=== PATIENT | male | born 1975 | race Two or more races ===

== ENCOUNTER 2024-05-26 03:36 | Inpatient (IN) | payer MEDICAID ==
[~2024-05-26] VITALS: Ht 175.3 cm; Wt 95.5 kg
[2024-05-26 06:12] LABS: COVID AG,FIA SOURCE NASAL SWAB
[2024-05-26 06:24] LABS: BASOPHILS % (AUTO) 0.4 % (0.0-2.0); EOSINOPHILS % (AUTO) 1.4 % (1.0-6.0); HEMATOCRIT 47.9 % (41-53); HEMOGLOBIN 16.3 g/dL (13.5-17.5); LYMPHOCYTES # (AUTO) 0.9 K/uL (1.0-4.8); LYMPHOCYTES % (AUTO) 17.9 % (22.0-44.0); MEAN CORPUSCULAR HEMOGLOBIN 29.2 pg (26.0-34.0); MEAN CORPUSCULAR VOLUME 86 fL (80-100); MONOCYTES # (AUTO) 0.7 K/uL (0.1-1.0); MONOCYTES % (AUTO) 13.6 % (2.0-9.0); NEUTROPHILS # (AUTO) 3.3 K/uL (1.8-7.7); NEUTROPHILS % (AUTO) 66.7 % (40.0-70.0); PLATELET COUNT (AUTO) 201 K/uL (150-450); RED BLOOD CELL COUNT(AUTO) 5.57 MIL/uL (4.50-5.90); RED CELL DISTRIBUTION WIDTH 13.6 % (11.5-14.5); WHITE BLOOD COUNT (AUTO) 4.9 K/uL (4.5-11.0)
[2024-05-26 06:35] LABS: ALCOHOL, BLOOD (SERUM) < 3 mg/dL (0-10)
[2024-05-26 06:42] LABS: SARS-COV2 (COVID) ANTIGEN,FIA Negative (Negative)
[2024-05-26 06:49] LABS: ANION GAP 6 mmol/L (8-16); CALCIUM, TOTAL 8.8 mg/dL (8.8-10.5); CARBON DIOXIDE 31 mmol/L (22-29); CHLORIDE 99 mmol/L (98-107); CREATININE 1.13 mg/dL (0.60-1.30); GLOMERULAR FILTR. RATE CALC > 60 mL/min (>60); GLUCOSE,RANDOM 131 mg/dL (70-110); POTASSIUM 4.6 mmol/L (3.5-5.1); SODIUM SERUM 136 mmol/L (136-145); UREA NITROGEN, BLOOD 10 mg/dL (7-18)
[2024-05-26 07:34] LABS: PH,URINE DRUG SCREEN 5.5 (5.0-8.0)
[2024-05-26 07:40] LABS: ALCOHOL, URINE DRUG SCREEN NEGATIVE (NEGATIVE); AMPHET/METH SCREEN,URINE POSITIVE (NEGATIVE); BARBITURATE SCREEN, URINE NEGATIVE (NEGATIVE); BENZODIAZEPINES SCREEN,URINE NEGATIVE (NEGATIVE); CANNABINOID SCREEN,URINE NEGATIVE (NEGATIVE); COCAINE SCREEN,URINE NEGATIVE (NEGATIVE); METHADONE SCREEN, URINE NEGATIVE (NEGATIVE); OPIATE SCREEN,URINE NEGATIVE (NEGATIVE); PHENCYCLIDINE SCREEN,URINE NEGATIVE (NEGATIVE)
[2024-05-26] MEDS ORDERED: TUBERCULIN, PURIFIED PROTEIN DERIVATIVE 5 TU/0.1 ML SYRINGE ID ONE (07:45)
[2024-05-26] MEDS ORDERED: MAGNESIUM HYDROXIDE SUSPENSION 30 ML UDCUP PO PRN (07:45)
[2024-05-26] MEDS ORDERED: OLANZapine 5 MG RAPDIS TABLET PO PRN (07:45)
[2024-05-26] MEDS ORDERED: LORazepam 2 MG TABLET PO PRN (07:45)
[2024-05-26] MEDS ORDERED: ACETAMINOPHEN 325 MG TABLET PO PRN (07:45)
[2024-05-26] MEDS ORDERED: HydrOXYzine PAMOATE 50 MG CAPSULE PO PRN (07:45)
[2024-05-26] MEDS ORDERED: GuaiFENesin/D-METHORPHAN [SUGAR-FREE] 200-20MG/10 ML SYRUP UDCUP PO PRN (07:45)
[2024-05-26] MEDS ORDERED: PROMETHAZINE HCL 25 MG TABLET PO PRN (07:45)
[2024-05-26] MEDS ORDERED: MAG HYDROX/ALUMINUM HYD/SIMETH ES 30 ML SUSPENSION UDCUP PO PRN (07:45)
[2024-05-26] MEDS ORDERED: LOPERAMIDE HCL 2 MG CAPSULE PO PRN (07:45)
[2024-05-26] MEDS ORDERED: ZOLPIDEM TARTRATE 10 MG TABLET PO PRN (07:45)
[2024-05-26] MEDS: THIAMINE 100 MG TABLET PO SCH (11:00)
[2024-05-26] MEDS: MULTIVITAMINS WITH MINERALS, THERAPEUTIC TABLET PO SCH (11:00)
[2024-05-26] MEDS: FOLIC ACID 1 MG TABLET PO SCH (11:00)
[2024-05-26 17:47] VITALS: BP 158/96; PULSE 100; RESP 18; TEMP 97; O2SAT 98
[2024-05-26] MEDS ORDERED: INFLUENZA VIRUS VACCINE TVS (6MO+) 2024-25/PF 45 MCG/0.5 ML SYRINGE IM. ONE (18:15)
[2024-05-26] MEDS: MELATONIN 5 MG TABLET PO SCH (20:12)
[2024-05-26 20:13] VITALS: BP 145/78; PULSE 109; RESP 18; TEMP 98.6; O2SAT 96
[2024-05-26] MEDS: OLANZapine 5 MG RAPDIS TABLET PO SCH (20:13)
[2024-05-27 07:37] LABS: HEMOGLOBIN A1C 7.6 % (3.8-5.6)
[2024-05-27 07:49] LABS: CHOL/HDL RATIO 3.5 (4.2-7.3); FREE T4 (FREE THYROXINE) 0.83 ng/dL (0.76-1.46); THYROID STIMULATING HORMONE 0.82 uIU/mL (0.36-3.74)
[2024-05-27 11:01] VITALS: BP 128/74; PULSE 107; RESP 18; TEMP 98.1; O2SAT 100
[2024-05-27] MEDS ORDERED: DEXTROSE 50%-WATER 25 GM/50 ML SYRINGE IVP PRN (12:45)
[2024-05-27] MEDS ORDERED: DENTURE ADHESIVE 68 GM CREAM DT PRN (15:45)
[2024-05-27 16:30] VITALS: BP 139/93; RESP 18; O2SAT 99
[2024-05-27 17:45] LABS: GLUCOMETER DEV NAME(LOC) 3EX.2; GLUCOSE,POINT OF CARE 134 MG/DL (70-110)
[2024-05-27 20:08] LABS: GLUCOMETER DEV NAME(LOC) 3EX.2; GLUCOSE,POINT OF CARE 245 MG/DL (70-110)
[2024-05-27] MEDS: INSULIN LISPRO 100 UNITS/ML SQ PRN (20:46)
[2024-05-27 22:45] VITALS: BP 120/61; PULSE 85; RESP 18; TEMP 98.5; O2SAT 97
[2024-05-28 06:51] LABS: GLUCOMETER DEV NAME(LOC) 3EX.2; GLUCOSE,POINT OF CARE 183 MG/DL (70-110)
[2024-05-28] MEDS: MetFORMIN HCL 500 MG TABLET PO SCH (07:30)
[2024-05-28 13:56] VITALS: BP 127/76; PULSE 91; RESP 18; TEMP 97.2; O2SAT 98
[2024-05-28 17:35] LABS: GLUCOMETER DEV NAME(LOC) 3E.C; GLUCOSE,POINT OF CARE 188 MG/DL (70-110)
[2024-05-28] MEDS: OLANZapine 10 MG RAPDIS TABLET PO SCH (21:00)
[2024-05-28 21:06] VITALS: BP 138/80; PULSE 139; RESP 18; TEMP 97.4; O2SAT 98
[2024-05-29 09:00] VITALS: BP 133/71; PULSE 94; RESP 18; TEMP 97.3; O2SAT 98
[2024-05-29] MEDS ORDERED: MELA5TAB40 PO (13:45)
[2024-05-29] MEDS ORDERED: OLAN10TA26 PO (13:45)
[2024-05-29] MEDS ORDERED: METF-1211 PO (13:59)
== END 2024-05-29 18:07 | disposition home or self-care (01) | DRG 750 ==
LOC: EMS 03:38 → 3EI 15:41
PROVIDERS: ADMIT Psychiatry & Neurology Psychiatry; ATTEND Psychiatry & Neurology Psychiatry
PROC: GZHZZZZ Group Psychotherapy (ICD-10-PCS; principal; 2024-05-27)
PROC: GZ51ZZZ Individual Psychotherapy, Behavioral (ICD-10-PCS; 2024-05-27)
DX: F20.9 Schizophrenia, unspecified (principal); G93.41 Metabolic encephalopathy; R45.851 Suicidal ideations; F32.9 Major depressive disorder, single episode, unspecified; Z59.00 Homelessness unspecified; Z20.822 Contact with and (suspected) exposure to COVID-19; E11.65 Type 2 diabetes mellitus with hyperglycemia; I10 Essential (primary) hypertension; F41.9 Anxiety disorder, unspecified; K21.9 Gastro-esophageal reflux disease without esophagitis; J44.9 Chronic obstructive pulmonary disease, unspecified; K59.00 Constipation, unspecified; E78.5 Hyperlipidemia, unspecified; F17.200 Nicotine dependence, unspecified, uncomplicated; F12.90 Cannabis use, unspecified, uncomplicated; F10.90 Alcohol use, unspecified, uncomplicated; M19.90 Unspecified osteoarthritis, unspecified site
CPT/HCPCS: 80048; 80061; 80307; 82962; 83036; 84439; 84443; 85025; 86592; 99285; G0480

== ENCOUNTER 2024-05-30 05:10 | Inpatient (IN) | payer MEDICAID ==
[~2024-05-30] VITALS: Ht 175.3 cm; Wt 77.6 kg
[~2024-05-30 05:10] MED LIST: MELA5TAB40 PO; METF-1211 PO; OLAN10TA26 PO
[2024-05-30 05:38] LABS: COVID AG,FIA SOURCE NASAL SWAB
[2024-05-30 05:41] LABS: BASOPHILS % (AUTO) 0.7 % (0.0-2.0); EOSINOPHILS % (AUTO) 1.2 % (1.0-6.0); HEMATOCRIT 46.9 % (41-53); HEMOGLOBIN 16.7 g/dL (13.5-17.5); LYMPHOCYTES # (AUTO) 1.8 K/uL (1.0-4.8); LYMPHOCYTES % (AUTO) 40.1 % (22.0-44.0); MEAN CORPUSCULAR HGB CONC 35.7 G/dL (31.0-37.0); MEAN CORPUSCULAR VOLUME 84 fL (80-100); MONOCYTES # (AUTO) 0.5 K/uL (0.1-1.0); MONOCYTES % (AUTO) 11.4 % (2.0-9.0); NEUTROPHILS % (AUTO) 46.6 % (40.0-70.0); PLATELET COUNT (AUTO) 199 K/uL (150-450); RED BLOOD CELL COUNT(AUTO) 5.58 MIL/uL (4.50-5.90); RED CELL DISTRIBUTION WIDTH 13.2 % (11.5-14.5); WHITE BLOOD COUNT (AUTO) 4.4 K/uL (4.5-11.0)
[2024-05-30 05:49] LABS: PH,URINE DRUG SCREEN 5.5 (5.0-8.0)
[2024-05-30 05:50] LABS: ANION GAP 6 mmol/L (8-16); CALCIUM, TOTAL 8.7 mg/dL (8.8-10.5); CARBON DIOXIDE 33 mmol/L (22-29); CHLORIDE 98 mmol/L (98-107); CREATININE 1.08 mg/dL (0.60-1.30); GLOMERULAR FILTR. RATE CALC > 60 mL/min (>60); GLUCOSE,RANDOM 202 mg/dL (70-110); POTASSIUM 4.7 mmol/L (3.5-5.1); SODIUM SERUM 137 mmol/L (136-145); UREA NITROGEN, BLOOD 17 mg/dL (7-18)
[2024-05-30 05:56] LABS: ALCOHOL, URINE DRUG SCREEN NEGATIVE (NEGATIVE); AMPHET/METH SCREEN,URINE NEGATIVE (NEGATIVE); BARBITURATE SCREEN, URINE NEGATIVE (NEGATIVE); BENZODIAZEPINES SCREEN,URINE NEGATIVE (NEGATIVE); CANNABINOID SCREEN,URINE NEGATIVE (NEGATIVE); COCAINE SCREEN,URINE NEGATIVE (NEGATIVE); METHADONE SCREEN, URINE NEGATIVE (NEGATIVE); OPIATE SCREEN,URINE NEGATIVE (NEGATIVE); PHENCYCLIDINE SCREEN,URINE NEGATIVE (NEGATIVE)
[2024-05-30 05:58] LABS: ALCOHOL, BLOOD (SERUM) < 3 mg/dL (0-10)
[2024-05-30 06:05] LABS: SARS-COV2 (COVID) ANTIGEN,FIA Negative (Negative)
[2024-05-30] MEDS ORDERED: HALOPERIDOL 5 MG TABLET PO PRN (09:30)
[2024-05-30] MEDS ORDERED: ZOLPIDEM TARTRATE 10 MG TABLET PO PRN (09:30)
[2024-05-30] MEDS ORDERED: LORazepam 2 MG TABLET PO PRN (09:30)
[2024-05-30 10:24] VITALS: O2SAT 99
[2024-05-30 13:55] VITALS: BP 132/86; PULSE 82; RESP 18; TEMP 97.6; O2SAT 99
[2024-05-30] MEDS ORDERED: INFLUENZA VIRUS VACCINE TVS (6MO+) 2024-25/PF 45 MCG/0.5 ML SYRINGE IM. ONE (14:00)
[2024-05-30 20:34] VITALS: RESP 16
[2024-05-31 08:45] VITALS: BP 115/70; PULSE 87; RESP 18; TEMP 98.2; O2SAT 98
[2024-05-31 09:00] LABS: HEMOGLOBIN A1C 7.8 % (3.8-5.6)
[2024-05-31 09:06] LABS: CHOL/HDL RATIO 4.7 (4.2-7.3)
[2024-05-31] MEDS ORDERED: GLUCAGON,HUMAN RECOMBINANT 1 MG VIAL IM PRN (13:45)
[2024-05-31] MEDS ORDERED: IBUPROFEN 600 MG TABLET PO PRN (13:45)
[2024-05-31] MEDS ORDERED: DOCUSATE SODIUM 100 MG CAPSULE PO PRN (13:45)
[2024-05-31] MEDS ORDERED: BENZOCAINE/MENTHOL LOZENGE PO PRN (13:45)
[2024-05-31] MEDS ORDERED: MAG HYDROX/ALUMINUM HYD/SIMETH ES 30 ML SUSPENSION UDCUP PO PRN (13:45)
[2024-05-31] MEDS ORDERED: LOPERAMIDE HCL 2 MG CAPSULE PO PRN (13:45)
[2024-05-31] MEDS ORDERED: OMEPRAZOLE 20 MG CAPSULE PO PRN (13:45)
[2024-05-31] MEDS ORDERED: INSULIN LISPRO 100 UNITS/ML SQ PRN (13:45)
[2024-05-31] MEDS ORDERED: BACITRACIN 28 GM OINTMENT TP PRN (13:45)
[2024-05-31] MEDS ORDERED: CloNIDine HCL 0.1 MG TABLET PO PRN (13:45)
[2024-05-31] MEDS ORDERED: ALBUTEROL SULFATE HFA 90 MCG/PUFF 8 GM INHALER IH PRN (13:45)
[2024-05-31] MEDS ORDERED: ACETAMINOPHEN 325 MG TABLET PO PRN (13:45)
[2024-05-31] MEDS ORDERED: PETROLATUM,WHITE 28 GM JELLY TP PRN (13:45)
[2024-05-31] MEDS ORDERED: MAGNESIUM HYDROXIDE SUSPENSION 30 ML UDCUP PO PRN (13:45)
[2024-05-31] MEDS ORDERED: ONDANSETRON 4 MG TABLET PO PRN (13:45)
[2024-05-31 16:45] LABS: GLUCOMETER DEV NAME(LOC) BV2S.; GLUCOSE,POINT OF CARE 158 MG/DL (70-110)
[2024-05-31] MEDS: MetFORMIN HCL 500 MG TABLET PO SCH (17:00)
[2024-05-31] MEDS ORDERED: MetFORMIN HCL 500 MG TABLET PO SCH (17:00)
[2024-05-31 20:00] VITALS: BP 114/73; PULSE 72; RESP 18; TEMP 97.8; O2SAT 98
[2024-05-31 21:05] LABS: GLUCOMETER DEV NAME(LOC) BV2S.; GLUCOSE,POINT OF CARE 132 MG/DL (70-110)
[2024-05-31] MEDS: DENTURE ADHESIVE 68 GM CREAM DT PRN (21:56)
[2024-06-01 06:40] LABS: GLUCOMETER DEV NAME(LOC) BV2S.; GLUCOSE,POINT OF CARE 133 MG/DL (70-110)
[2024-06-01] MEDS: MetFORMIN HCL 500 MG TABLET PO SCH (06:48)
[2024-06-01 08:56] VITALS: BP 115/63; PULSE 77; RESP 18; TEMP 98.7; O2SAT 100
[2024-06-01 12:11] LABS: GLUCOMETER DEV NAME(LOC) BV2S.; GLUCOSE,POINT OF CARE 201 MG/DL (70-110)
[2024-06-01] MEDS ORDERED: NALT50TA6 PO (15:23)
[2024-06-01] MEDS ORDERED: FLUO-418 PO (15:23)
[2024-06-01] MEDS ORDERED: OLAN5TAB94 PO (15:23)
[2024-06-01 20:32] VITALS: BP 126/84; PULSE 87; RESP 17; TEMP 96.7; O2SAT 97
[2024-06-01] MEDS: FLUoxetine HCL 20 MG CAPSULE PO SCH (20:55)
[2024-06-01] MEDS: OLANZapine 5 MG RAPDIS TABLET PO SCH (20:55)
[2024-06-02 08:47] VITALS: BP 109/66; PULSE 80; RESP 18; TEMP 97.8; O2SAT 98
[2024-06-02] MEDS ORDERED: NALTREXONE HCL 50 MG TABLET PO SCH (09:00)
== END 2024-06-02 09:01 | disposition home or self-care (01) | DRG 750 ==
LOC: EMS 05:10 → B2S 12:51
PROVIDERS: ADMIT Psychiatry & Neurology Psychiatry; ATTEND Psychiatry & Neurology Psychiatry
DX: F25.9 Schizoaffective disorder, unspecified (principal); R45.851 Suicidal ideations; E11.65 Type 2 diabetes mellitus with hyperglycemia; Z20.822 Contact with and (suspected) exposure to COVID-19; E78.5 Hyperlipidemia, unspecified; I10 Essential (primary) hypertension; F41.9 Anxiety disorder, unspecified; Y90.0 Blood alcohol level of less than 20 mg/100 ml; F10.90 Alcohol use, unspecified, uncomplicated; F12.90 Cannabis use, unspecified, uncomplicated; K21.9 Gastro-esophageal reflux disease without esophagitis; J44.9 Chronic obstructive pulmonary disease, unspecified; K59.00 Constipation, unspecified; Z55.9 Problems related to education and literacy, unspecified; Z59.9 Problem related to housing and economic circumstances, unspecified; Z63.9 Problem related to primary support group, unspecified; Z65.3 Problems related to other legal circumstances; Z91.199 Patient's noncompliance with other medical treatment and regimen due to unspecified reason; Z59.00 Homelessness unspecified; M19.90 Unspecified osteoarthritis, unspecified site
CPT/HCPCS: 80048; 80061; 80307; 82962; 83036; 85025; G0480